=== PATIENT | female | born 1985 | race Caucasian/White ===

== ENCOUNTER 2016-10-26 13:29 | Emergency (ER) | payer OTHER ==
[~2016-10-26] VITALS: Ht 167.6 cm; Wt 66.5 kg
[~2016-10-26 13:29] MED LIST: ALBU0.5N2 INH; ALBUAER19 INH; FLVHFA110 INH; PRENTAB26 PO; [UNRECOGNIZED DRUG - OTHER]
[2016-10-26 13:31] VITALS: Ht 167.6 cm; Wt 66.5 kg
[2016-10-26] MEDS ORDERED: ONDANSETRON INJ 2 MG/ML 2 ML VIAL IV STA (13:42)
[2016-10-26] MEDS ORDERED: SODIUM CHLORIDE 0.9% 1000ML 1,000 ML IV STA (13:42)
[2016-10-26] MEDS ORDERED: ACETAMINOPHEN 500 MG TAB PO STA (13:42)
[2016-10-26] MEDS ORDERED: IPRA1AER2 INH (14:24)
[2016-10-26] MEDS ORDERED: RRALBUTNEB NEB (14:24)
[2016-10-26] MEDS ORDERED: PRVHFAIN INH (14:24)
[2016-10-26 14:27] LABS: BASO % 0.2 %; BASO ABS # 0.02 K/uL (0-0.2); COMPLETE YES; EOS % 0.1 %; HEMATOCRIT 45.3 % (37-47); IG% 0.1 %; LYMPH ABS # 0.68 K/uL (1.2-3.4); MEAN CELL VOLUME 87.6 fL (80-100); MEAN CORPUSCULAR HEMOGLOBIN 29.6 pg (25-34); MEAN CORPUSCULAR HGB CONC 33.8 g/dl (32-36); MEAN PLATELET VOLUME 9.8 fL (7.4-10.4); MONO % 5.4 %; NEUT % 86.2 %; PLATELET COUNT 194 K/uL (130-400); RED BLOOD COUNT 5.17 M/uL (4.2-5.4); WHITE BLOOD COUNT 8.47 K/uL (4.8-10.8)
[2016-10-26 14:37] LABS: BUN/CREATININE RATIO 14.3 (10-20); CALCIUM 8.7 mg/dl (8.5-10.1); CREATININE 0.79 mg/dl (0.60-1.20); POTASSIUM 3.5 mmol/L (3.5-5.1)
[2016-10-26] MEDS ORDERED: ONDA4TAB10 SL (14:55)
--- NOTE | 2016-10-26 14:57 | EMERGENCY ROOM VISIT NOTE ---
History First contact with patient: 13:35 Chief Complaint: FLU LIKE SX Stated Complaint: DEHYDRATED, FEVER, SORETHROAT, VOMITING History of Present Illness The patient is a 30 year old female who presents to the Emergency Room with complaints of flulike symptoms. The patient states day she started with a sore throat and nausea. Yesterday she had a temperature of 103 and continued with increasing sore throat, nausea and vomiting. The patient states that she feels achy all over. The patient denies any ear pain or pressure. The patient denies any cough, chest tightness or chest pain. The patient states she took Tylenol at 6 AM this morning. She cannot take ibuprofen. Review of Systems 10 system review was performed and was negative unless stated otherwise history of present illness. Past Medical/Surgical History Medical Problems: (1) Abdominal pain (2) Asthma (3) Dehydration (4) Early stage of (5) First trimester (6) Miscarriage (7) Nausea (8) (9) (10) Right leg paresthesias (11) UTI (urinary tract infection) (12) Vomiting Social History Problems: (1) Vomiting Social History Smoking Status: Current Every Day Smoker Alcohol Use: none Drug Use: none, other Marital Status: single Occupation Status: employed Current/Historical Medications Scheduled Ipratropium-Albuterol (Combivent Respimat), 1 PUFFS INH BID Scheduled PRN Albuterol (Ventolin Hfa), 2 PUFFS INH Q4 PRN for SOB/Wheezing Albuterol Sulf (Albuterol Sulfate), 1 DOSE NEB Q4 PRN for SOB/Wheezing Allergies Coded Allergies: Aspirin (Verified Allergy, Unknown, SOB, SWELLING, 10/26/16) Ibuprofen (Verified Allergy, Unknown, throat swelling, 10/26/16) pt NSAIDs (Verified Allergy, Unknown, EYES SWELL, 10/26/16) Physical Exam Vital Signs Date Time Temp Pulse Resp B/P Pulse Ox O2 Delivery O2 Flow Rate FiO2 10/26/16 13:31 37.1 106 18 129/68 98 Room Air Physical Exam PHYSICAL EXAM: Vital Signs were reviewed: Temperature 37.1, blood pressure 129/ 68, pulse 106, respirations 18 Reviewed Nurse's notes and agree. Oxygen saturation is 98 % on room air which is normal . GENERAL: 30-year-old female appears in no acute distress. MENTAL STATUS: Alert, oriented, coherent. EARS: Canals clear. TMs good light reflex, no erythema or fluid level noted. NOSE: Nasal mucosa with moderate erythema engorgement. PHARYNX: Moderate erythema, tonsils 2+ with small amount of exudate. Uvula midline without deviation. Airway is adequate. NECK: Supple, bilateral anterior cervical lymphadenopathy is noted right greater than left. LUNGS: Clear to auscultation without wheezes rales or rhonchi. CARDIAC: Regular rate and rhythm without murmur. SKIN: No rashes noted. ABDOMEN: Positive bowel sounds all 4 quadrants. Soft, generalized tenderness to palpation throughout. No organomegaly or masses noted. Medical Decision & Procedures Laboratory Results 10/26/16 14:00 Red Blood Count 5.17, Mean Corpuscular Volume 87.6, Mean Corpuscular Hemoglobin 29.6, Mean Corpuscular Hemoglobin Concent 33.8, Mean Platelet Volume 9.8, Neutrophils (%) (Auto) 86.2, Lymphocytes (%) (Auto) 8.0, Monocytes (%) (Auto) 5.4, Eosinophils (%) (Auto) 0.1, Basophils (%) (Auto) 0.2, Neutrophils # (Auto) 7.29, Lymphocytes # (Auto) 0.68, Monocytes # (Auto) 0.46, Eosinophils # (Auto) 0.01, Basophils # (Auto) 0.02 10/26/16 14:00 Test 10/26/16 14:00 White Blood Count 8.47 K/uL (4.8-10.8) Red Blood Count 5.17 M/uL (4.2-5.4) Hemoglobin 15.3 g/dL (12.0-16.0) Hematocrit 45.3 % (37-47) Mean Corpuscular Volume 87.6 fL (80-100) Mean Corpuscular Hemoglobin 29.6 pg (25-34) Mean Corpuscular Hemoglobin Concent 33.8 g/dl (32-36) Platelet Count 194 K/uL (130-400) Mean Platelet Volume 9.8 fL (7.4-10.4) Neutrophils (%) (Auto) 86.2 % Lymphocytes (%) (Auto) 8.0 % Monocytes (%) (Auto) 5.4 % Eosinophils (%) (Auto) 0.1 % Basophils (%) (Auto) 0.2 % Neutrophils # (Auto) 7.29 K/uL (1.4-6.5) Lymphocytes # (Auto) 0.68 K/uL (1.2-3.4) Monocytes # (Auto) 0.46 K/uL (0.11-0.59) Eosinophils # (Auto) 0.01 K/uL (0-0.5) Basophils # (Auto) 0.02 K/uL (0-0.2) RDW Standard Deviation 45.7 fL (36.4-46.3) RDW Coefficient of Variation 14.2 % (11.5-14.5) Immature Granulocyte % (Auto) 0.1 % Immature Granulocyte # (Auto) 0.01 K/uL (0.00-0.02) Anion Gap 12.0 mmol/L (3-11) Est Creatinine Clear Calc Drug Dose 98.3 ml/min Estimated GFR () 117.2 Estimated GFR (Non- 101.2 BUN/Creatinine Ratio 14.3 (10-20) Calcium Level 8.7 mg/dl (8.5-10.1) Influenza Type A Antigen Neg for Influ A (NEG) Influenza Type B Antigen Neg for Influ B (NEG) Medications Administered Medications (Trade) Dose Ordered Sig/Reji Route Start Time Stop Time Status Last Admin Dose Admin Sodium Chloride (Nss 1000ml) 1,000 ml @ 999 mls/hr Q1H1M STAT IV 10/26/16 13:42 10/26/16 14:42 DC 10/26/16 13:42 999 MLS/HR Ondansetron HCl (Zofran Inj) 4 mg NOW STAT IV 10/26/16 13:42 10/26/16 13:44 DC 10/26/16 14:03 4 MG Acetaminophen (Tylenol Tab) 1,000 mg NOW STAT PO 10/26/16 13:42 10/26/16 13:44 DC 10/26/16 13:54 1,000 MG ED Course The patient was evaluated. IV access was obtained. The patient was given 1 L normal saline wide-open. The patient was given Zofran 4 mg IV for nausea. The patient was given Tylenol 1 g by mouth for fever and body aches. CBC and differential, renal profile, was ordered. Labs are reviewed and were unremarkable. Monospot was ordered but after I spoke with the patient she stated later that she thinks she had mono when she was in high school.. Rapid influenza was negative for influenza A and influenza B. Rapid strep was negative. Culture is pending. the patient was informed of all findings. The patient was discharged home in stable condition. Medical Decision Differential diagnosis include strep pharyngitis, mono, viral pharyngitis, influenza, viral URI Impression Primary Impression: Upper respiratory infection Additional Impression: Pharyngitis Departure Information Dispostion Home / Self-Care Condition GOOD Prescriptions Ondasetron Odt (ZOFRAN ODT) 4 Mg Tab 4 MG SL Q6H for Nausea, #10 TAB Prov: Genna Centeno PA-C 10/26/16 Referrals No Doctor, Assigned (PCP) Forms HOME CARE DOCUMENTATION FORM, IMPORTANT VISIT INFORMATION Patient Instructions [facility] - [facility], [facility] Additional Instructions Push fluids, rest. Take Tylenol as needed for fever and body aches. Follow sore throat handouts instructions. Take Zofran as needed for nausea. If symptoms persist or worsen, return to ER. Problem Qualifiers
[2016-10-26 15:23] VITALS: BP 121/66; PULSE 99; TEMP 37.1; O2SAT 99
== END 2016-10-26 15:25 | disposition home or self-care (01) ==
LOC: C.EDB 13:32
DX: J02.9 Acute pharyngitis, unspecified (principal); J45.909 Unspecified asthma, uncomplicated; F17.200 Nicotine dependence, unspecified, uncomplicated

== ENCOUNTER 2016-12-18 21:44 | Emergency (ER) | payer OTHER ==
[~2016-12-18] VITALS: Ht 170.2 cm; Wt 66.1 kg
[~2016-12-18 21:44] MED LIST changes: -ALBU0.5N2 INH; -ALBUAER19 INH; -FLVHFA110 INH; +IPRA1AER2 INH; +ONDA4TAB10 SL; -PRENTAB26 PO; +PRVHFAIN INH; +RRALBUTNEB NEB; -[UNRECOGNIZED DRUG - OTHER]
[2016-12-18] MEDS ORDERED: SODIUM CHLORIDE 0.9% 1000ML 1,000 ML IV STA (21:58)
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
[2016-12-18 22:01] VITALS: O2SAT 95
[2016-12-18 22:06] VITALS: TEMP 36.9; Ht 170.2 cm; Wt 66.1 kg
[2016-12-18 22:14] LABS: BASO % 0.2 %; BASO ABS # 0.02 K/uL (0-0.2); COMPLETE YES; HEMATOCRIT 41.5 % (37-47); IG% 0.2 %; LYMPH % 27.2 %; LYMPH ABS # 2.33 K/uL (1.2-3.4); MEAN CELL VOLUME 88.9 fL (80-100); MEAN CORPUSCULAR HEMOGLOBIN 28.5 pg (25-34); MEAN PLATELET VOLUME 10.3 fL (7.4-10.4); NEUT % 60.4 %; PLATELET COUNT 291 K/uL (130-400); RED BLOOD COUNT 4.67 M/uL (4.2-5.4); WHITE BLOOD COUNT 8.56 K/uL (4.8-10.8)
[2016-12-18 22:44] LABS: ALKALINE PHOSPHATASE 101 U/L (45-117); ALT/SGPT 27 U/L (12-78); AST/SGOT 17 U/L (15-37); BLOOD UREA NITROGEN 11 mg/dl (7-18); BUN/CREATININE RATIO 16.3 (10-20); CARBON DIOXIDE 32 mmol/L (21-32); CHLORIDE 105 mmol/L (98-107); CREATININE 0.67 mg/dl (0.60-1.20); GLUCOSE 92 mg/dl (70-99); POTASSIUM 3.9 mmol/L (3.5-5.1); SODIUM 144 mmol/L (136-145)
[2016-12-18 22:45] LABS: ACETAMINOPHEN < 2 ug/ml (10-30)
[2016-12-18 23:10] LABS: PARTIAL THROMBOPLASTIN RATIO 1.1; PROTHROMBIN TIME (PATIENT) 11.1 SECONDS (9.0-12.0)
[2016-12-19 01:08] LABS: PREG INTERNAL NEGATIVE QC NEG CLEAR BACKGROUND; PREG INTERNAL POSITIVE QC POS CONTROL LINE
[2016-12-19 01:09] LABS: URINE APPEARANCE CLEAR (CLEAR); URINE COLOR DK YELLOW; URINE EPITHELIAL CELL AUTO 0-5 /lpf (0-5); URINE NITRITE NEG (NEG); URINE SPECIFIC GRAVITY 1.036 (1.000-1.030); UROBILINOGEN NEG (NEG)
[2016-12-19 01:10] LABS: MANUAL MICROSCOPIC REQUIRED? NO; REVIEW REQ? NO; URINE BILIRUBIN NEG (NEG)
[2016-12-19 01:27] LABS: BENZODIAZEPINE, URINE NEG (NEG); COCAINE,URINE NEG (NEG); PHENCYCLIDINE, URINE NEG (NEG)
[2016-12-19] MEDS ORDERED: ACETAMINOPHEN 325 MG TAB PO STA (08:53)
[2016-12-19 17:23] VITALS: BP 113/62; PULSE 84; O2SAT 95
--- NOTE | 2016-12-21 11:21 | EMERGENCY ROOM VISIT NOTE ---
ED Visit Note First contact with patient: 06:41 I received this patient in signout the change of shift from Dr. Ray Brown pending mental health evaluation. The patient is felt to be stable for outpatient management however [facility] was contacted secondary to her history of substance abuse while in care of her 2 children. Case management has discussed the situation with child line and the patient's children are in the custody of her mother. Patient is discharged and will return for worsening of symptoms or any medical concerns.
== END 2016-12-19 17:25 | disposition home or self-care (01) ==
LOC: EDBD 21:44 → C.EDB 21:47 → C.EDA 12-19 17:25
DX: F19.10 Other psychoactive substance abuse, uncomplicated (principal); F17.200 Nicotine dependence, unspecified, uncomplicated; J45.909 Unspecified asthma, uncomplicated

== ENCOUNTER → 2017-01-13 | Outpatient (CLI) | payer OTHER ==
[~2017-01-13] MED LIST changes: -ONDA4TAB10 SL
== END | disposition home or self-care (01) ==
LOC: C.LAB 21:08
DX: Z02.83 Encounter for blood-alcohol and blood-drug test (principal)

== ENCOUNTER 2017-07-12 20:56 | Emergency (ER) | payer OTHER ==
[~2017-07-12] VITALS: Ht 167.6 cm; Wt 70.5 kg
[2017-07-12 21:00] VITALS: TEMP 37; Ht 167.6 cm; Wt 70.5 kg
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
[2017-07-12 23:05] VITALS: BP 148/85; PULSE 89; O2SAT 98
== END 2017-07-12 23:13 | disposition home or self-care (01) ==
LOC: C.EDB 20:59 → C.EDD 23:13
DX: S89.392A Other physeal fracture of lower end of left fibula, initial encounter for closed fracture (principal); S00.81XA Abrasion of other part of head, initial encounter; S01.511A Laceration without foreign body of lip, initial encounter; T14.8XXA Other injury of unspecified body region, initial encounter; K08.89 Other specified disorders of teeth and supporting structures; M79.642 Pain in left hand; M25.522 Pain in left elbow; V48.5XXA Car driver injured in noncollision transport accident in traffic accident, initial encounter